=== PATIENT | female | born 1965 | race Hispanic/Latino ===

== ENCOUNTER 2018-04-03 11:13 | Emergency (ER) | payer BC ==
[2018-04-03 11:26] VITALS: RESP 18
--- NOTE | 2018-04-03 12:01 | ED PDOC ---
HPI: Eye Injury/Pain Time Seen by Provider: 04/03/18 11:25 Chief Complaint (Nursing): Eye Problem Chief Complaint (Provider): Eye Irritation History Per: Patient History/Exam Limitations: no limitations Onset/Duration Of Symptoms: Days (x1) Current Symptoms Are (Timing): Still Present Injury To Eye?: No Severity: None Associated Symptoms: denies: Decreased Vision Additional Complaint(s): 62 year old female presents to the emergency department complaining that she is seeing 2 black dots out of her left eye. Patient states that she is travelling from [place] and woke up yesterday and noticed that she was seeing 2 dots out of her left eye lateral to the midline. She reports that the dots krysten with her eyes and do not float by themselves. Denies trouble seeing, photophobia, headache, dizziness, blurry vision, double vision, neck pain, headache. Of note: Patient states that she does tae aspirin every other day but she has no real reason for taking it. PMD: Non [facility] Provider Past Medical History Reviewed: Historical Data, Nursing Documentation, Vital Signs Vital Signs: Last Vital Signs Temp 97.7 F 04/03/18 11:25 Pulse 80 04/03/18 11:25 Resp 18 04/03/18 11:25 BP 156/90 H 04/03/18 11:25 Pulse Ox 99 04/03/18 11:25 - Medical History PMH: No Chronic Diseases - Surgical History Surgical History: No Surg Hx - Family History Family History: States: Unknown Family Hx - Social History Current smoker - smoking cessation education provided: No Ex-Smoker (has not smoked in the last 12 months): No Alcohol: None Drugs: Denies - Allergies Allergies/Adverse Reactions: Allergies Allergy/AdvReac Type Severity Reaction Status Date / Time No Known Allergies Allergy Verified 04/03/18 11:41 Review of Systems ROS Statement: Except As Marked, All Systems Reviewed And Found Negative Eyes: Positive for: Other (Seeing 2 black dots out of left). Negative for: Pain , Vision Change Physical Exam - Reviewed Nursing Documentation Reviewed: Yes Vital Signs Reviewed: Yes - Physical Exam Appears: Positive for: Non-toxic, No Acute Distress Head Exam: Positive for: ATRAUMATIC, NORMAL INSPECTION, NORMOCEPHALIC Skin: Positive for: Normal Color, Warm, Dry. Negative for: Rash Eye Exam: Positive for: Normal appearance (Fundoscopic exam: blood vessels sharp and clear optic disc margin clear no apparent hemorrhage in retinal background ), EOMI, PERRL. Negative for: Nystagmus, Periorbital tenderness, Conjunctival injection ENT: Positive for: Normal ENT Inspection. Negative for: Nasal Congestion, Tonsillar Exudate, Tonsillar Swelling Cardiovascular/Chest: Positive for: Regular Rate, Rhythm, Chest Non Tender. Negative for: Tachycardia Respiratory: Positive for: Normal Breath Sounds. Negative for: Wheezing, Respiratory Distress Extremity: Positive for: Normal ROM. Negative for: Tenderness, Deformity, Swelling Neurologic/Psych: Positive for: Alert, Oriented, Gait. Negative for: Motor/ Sensory Deficits - ECG O2 Sat by Pulse Oximetry: 99 (RA) Pulse Ox Interpretation: Normal Medical Decision Making Medical Decision Makin Initial Impression 62 year old female presenting with eye irritation Initial Plan: * Reevaluation Dr. Perla will be called to discuss case Documented by Sera Cardozo acting as a scribe for Domenica Crawford MD. All medical record entries made by the Scribe were at my direction and personally dictated by me. I have reviewed the chart and agree that the record accurately reflects my personal performance of the history, physical exam, medical decision making, and the department course for this patient. I have also personally directed, reviewed, and agree with the discharge instructions and disposition. Case d/w Dr. Finley. Despite lack of signs and symptoms of an acute process, he recommends evaluation by an menswear salesperson at the earliest convenience. Disposition - Clinical Impression Clinical Impression: Visual complaint - Patient ED Disposition Is Patient to be Admitted: No Doctor Will See Patient In The: Office Counseled Patient/Family Regarding: Diagnosis, Need For Followup - Disposition Referrals: Reilly Finley MD [Staff Provider] - [facility] [employer] [facility] [Outside] Disposition: Routine/Home Disposition Time: 12:58 Condition: STABLE Additional Instructions: Please followup with an menswear salesperson at your earliest convenience. Forms: [facility] [employer] [facility] ([facility]) - POA Present On Arrival: None
[2018-04-03 13:19] VITALS: BP 149/86; PULSE 82; TEMP 98; O2SAT 100
== END 2018-04-03 13:10 | disposition home or self-care (01) ==
LOC: H.ER 11:13
DX: H53.9 Unspecified visual disturbance (principal)